=== PATIENT | female | born 1955 | race Caucasian/White ===

== ENCOUNTER 2023-03-26 14:59 | Emergency (ER) | payer OTHER, MEDICARE ==
[~2023-03-26] VITALS: Ht 157.5 cm; Wt 71.7 kg
[2023-03-26 15:13] VITALS: BP_SYST 165; PULSE 83; RESP 14; TEMP 97.9; O2SAT 99
[2023-03-26 16:04] LABS: COVID19 ANTIGEN SOFIA FIA NEGATIVE (NEGATIVE)
[2023-03-26 16:05] LABS: INFLUENZA TYPE A Negative (NEGATIVE); INFLUENZA TYPE B NEGATIVE (NEGATIVE)
[2023-03-26] MEDS ORDERED: ALBMDI INH (17:33)
[2023-03-26] MEDS ORDERED: PRED20TA PO (17:33)
[2023-03-26 17:55] VITALS: BP_SYST 132; PULSE 68; RESP 16; TEMP 97.9; O2SAT 99
== END 2023-03-26 17:55 | disposition home or self-care (01) ==
LOC: SED 14:59
DX: J40 Bronchitis, not specified as acute or chronic (principal); I10 Essential (primary) hypertension; Z20.822 Contact with and (suspected) exposure to COVID-19
CPT/HCPCS: 36415; 71045; 99284